=== PATIENT | male | born 1950 | race Caucasian/White ===

== ENCOUNTER 2016-10-11 15:15 | Emergency (ER) | payer SELFPAY ==
[2016-10-11 15:24] VITALS: BP 123/77
--- NOTE | 2016-10-11 15:56 | UC ---
Head Injury HPI - HPI Summary HPI Summary: fell and hit left side of forehead on cement-laceration above left eye brow, no loc - History Of Current Complaint Chief Complaint: UCLaceration Stated Complaint: FOREHEAD LAC Time Seen by Provider: 10/11/16 15:36 Hx Obtained From: Patient Mechanism Of Injury: fall Onset/Duration: Sudden Onset, Lasting Hours - 1, Still Present Severity Currently: Moderate Severity Initially: Moderate Pain Intensity: 4 Pain Scale Used: 0-10 Numeric Character: Other Aggravating Factor(s): Nothing Alleviating Factor(s): Nothing Associated Signs And Symptoms: Positive: Negative Anticoagulant Therapy: Platelet Inhibitors - Allergies/Home Medications Allergies/Adverse Reactions: Allergies Allergy/AdvReac Type Severity Reaction Status Date / Time No Known Allergies Allergy Verified 10/11/16 15:41 Home Medications: Home Medications Atorvastatin* [Lipitor 40 MG*] 40 mg PO DAILY 10/11/16 [History Confirmed ] Bisoprolol TAB* [Zebeta TAB*] 1 tab PO DAILY 10/11/16 [History Confirmed ] Clonazepam 0.5 mg PO DAILY 10/11/16 [History Confirmed 10/11/16] Clopidogrel TAB* [Plavix TAB*] 75 mg PO DAILY 10/11/16 [History Confirmed ] Hydroxychloroquine TAB* [Plaquenil TAB*] 2 tab PO DAILY 10/11/16 [History Confirmed 10/11/16] Lisinopril TAB* [Prinivil TAB 5 MG*] 5 mg PO DAILY 10/11/16 [History Confirmed 10/11/16] Nitroglycerin TAB 0.4 MG* 0.4 mg SL SEE INSTRUCTIONS PRN 10/11/16 [History Confirmed 10/11/16] Pantoprazole Sodium [Protonix] 40 mg PO DAILY 10/11/16 [History Confirmed ] Potassium Chloride Microencaps [Klor-Con M10] 20 mg PO BID 10/11/16 [History Confirmed 10/11/16] amLODIPine TAB* [Norvasc 5 mg TAB*] 5 mg PO DAILY 10/11/16 [History Confirmed ] PMH/Surg Hx/FS Hx/Imm Hx Previously Healthy: No Endocrine History: Dyslipidemia Cardiovascular History: Cardiac Disease, Hypertension, Myocardial Infarction - Surgical History Surgical History: Yes Surgery Procedure, Year, and Place: Stomach Surgery - Family History Known Family History: Positive: None Family History: Denies cardio vascular issues in family lineage - Social History Occupation: Employed Full-time - electric lift truck driver Lives: With Family Alcohol Use: None Substance Use Type: None Smoking Status (MU): Never Smoked Tobacco Review of Systems Constitutional: Negative Skin: Other - 1 inch laceration above left eye brow Eyes: Negative ENT: Negative Respiratory: Negative Cardiovascular: Negative Gastrointestinal: Negative Genitourinary: Negative Motor: Negative Neurovascular: Negative Musculoskeletal: Negative Neurological: Negative Psychological: Negative All Other Systems Reviewed And Are Negative: Yes Physical Exam Triage Information Reviewed: Yes Appearance: Well-Appearing, No Pain Distress, Well-Nourished Vital Signs: Initial Vital Signs Temp 98.0 F 10/11/16 15:22 Pulse 64 10/11/16 15:22 Resp 14 10/11/16 15:22 BP 123/77 10/11/16 15:22 Pulse Ox 100 10/11/16 15:22 Vital Signs Reviewed: Yes Eye Exam: Normal Eyes: Positive: Conjunctiva Clear ENT Exam: Normal ENT: Positive: Normal ENT inspection, Hearing grossly normal, Pharynx normal, TMs normal. Negative: Nasal congestion, Nasal drainage, Tonsillar swelling, Tonsillar exudate, Trismus, Muffled/hoarse voice Dental Exam: Normal Neck exam: Normal Neck: Positive: Supple, Nontender, No Lymphadenopathy Respiratory Exam: Normal Respiratory: Positive: Chest non-tender, Lungs clear, Normal breath sounds, No respiratory distress, No accessory muscle use Cardiovascular Exam: Normal Cardiovascular: Positive: RRR, No Murmur, Pulses Normal, Brisk Capillary Refill Musculoskeletal Exam: Normal Musculoskeletal: Positive: Strength Intact, ROM Intact, No Edema Neurological Exam: Normal Neurological: Positive: Alert, Muscle Tone Normal Psychological Exam: Normal Skin Exam: Other Skin: Positive: Other - laceration above left eye brow Head Injury Course/Dx - Course Course Of Treatment: transfer to [facility] [place] (CT scan not avalable) - Differential Dx/Diagnosis Differential Diagnosis/HQI/PQRI: Concussion With LOC, Contusion, Hematoma, Intracranial Bleed, Laceration Provider Diagnoses: Head injury on Plavix - Physician Notification/Consults Discussed Patient Care With: CN AT ED Time Discussed With Above Provider: 16:00 Instructed by Provider To: Transfer Discharge - Discharge Plan Condition: Stable Disposition: AGAINST MEDICAL ADVICE Referrals: Jean Claude SHAW,Raleigh Ayala [Primary Care Provider] -
== END 2016-10-11 16:05 | disposition left against medical advice (07) ==
LOC: UCEAST 15:15
DX: S01.81XA Laceration without foreign body of other part of head, initial encounter (principal); W19.XXXA Unspecified fall, initial encounter; Y93.9 Activity, unspecified; Y92.9 Unspecified place or not applicable; Y99.9 Unspecified external cause status; Z53.21 Procedure and treatment not carried out due to patient leaving prior to being seen by health care provider; E78.5 Hyperlipidemia, unspecified; I25.10 Atherosclerotic heart disease of native coronary artery without angina pectoris; I10 Essential (primary) hypertension; I25.2 Old myocardial infarction
CPT/HCPCS: 99202; G0463

== ENCOUNTER 2016-10-11 16:30 | Emergency (ER) | payer MEDICARE, OTHER ==
[2016-10-11 16:42] VITALS: BP 179/91
--- NOTE | 2016-10-11 16:44 | ED ---
Head Injury - HPI Summary HPI Summary: 66M presents with head injury today. He was seen at urgent care and was transferred for CT due to being on plavix. Fall was a mechanical fall. He denies any LOC, n/v or headache. He denies any pain or any other injury. He denies any blurry vision or change in vision. He states he only hit above his left eye. He has a laceration there. He is on the plavix due to a stent. He denies any chest pain or SOB. His last tetanus was recently he believes. - History Of Current Complaint Chief Complaint: EDHeadInjury Stated Complaint: HEAD INJURY/SENT FROM [facility] Time Seen by Provider: 10/11/16 16:38 Pain Intensity: 0 - Allergies/Home Medications Allergies/Adverse Reactions: Allergies Allergy/AdvReac Type Severity Reaction Status Date / Time No Known Allergies Allergy Verified 10/11/16 15:41 PMH/Surg Hx/FS Hx/Imm Hx Endocrine/Hematology History: Reports: Hx Anticoagulant Therapy Cardiovascular History: Reports: Hx Hypertension - Surgical History Surgery Procedure, Year, and Place: Stomach Surgery Infectious Disease History: No Infectious Disease History: Denies: Traveled Outside the [place] in Last 30 Days - Family History Known Family History: Positive: Cardiac Disease - Social History Alcohol Use: None Substance Use Type: Reports: None Smoking Status (MU): Never Smoked Tobacco Review of Systems Negative: Fever Negative: Chest Pain Negative: Shortness Of Breath Neurological: Other - head injury All Other Systems Reviewed And Are Negative: Yes Physical Exam Triage Information Reviewed: Yes Vital Signs On Initial Exam: Initial Vitals Temp Pulse Resp BP Pulse Ox 98.0 F 66 20 146/103 100 10/11/16 16:33 10/11/16 16:33 10/11/16 16:33 10/11/16 16:33 10/11/16 16:33 Vital Signs Reviewed: Yes Appearance: Positive: Well-Appearing Skin: Positive: Warm, Dry, Other - 1 cm laceration to left temporal region present on contusion Head/Face: Positive: Other - contusion above left eye, no racoon eyes, up sign Eyes: Positive: Normal, EOMI, RADHA, Conjunctiva Clear ENT: Positive: Normal ENT inspection, Pharynx normal, TMs normal Respiratory/Lung Sounds: Positive: Clear to Auscultation, Breath Sounds Present Cardiovascular: Positive: Normal, RRR Neurological: Positive: Sensory/Motor Intact, Alert, Oriented to Person Place, Time, CN Intact II-III - [place] Coma Scale Best Eye Response: 4 - Spontaneous Best Motor Response: 6 - Obeys Commands Best Verbal Response: 5 - Oriented Procedures - Laceration/Wound Repair 1 Location: head Description: Linear Length, Depth and Shape: 1cm Irrigated w/ Saline (ccs): 50 Closure: Skin Adhesive, SteriStrips Diagnostics - Vital Signs Vital Signs Temp Pulse Resp BP Pulse Ox 10/11/16 16:38 98 F 66 20 179/91 100 10/11/16 16:33 98.0 F 66 20 146/103 100 - Laboratory Lab Statement: Any lab studies that have been ordered have been reviewed, and results considered in the medical decision making process. - CT brain CT Interpretation: No Acute Changes - IMPRESSION: NO ACUTE INTRACRANIAL PATHOLOGY. CHRONIC SMALL VESSEL ISCHEMIC CHANGES. CT Interpretation Completed By: Radiologist maxillary facial CT Interpretation: No Acute Changes - IMPRESSION: SOFT TISSUE SWELLING. NO FACIAL FRACTURE. CT Interpretation Completed By: Radiologist Head Injury Course/Dx Course Of Treatment: 66M presents with head injury today s/p mechanical fall. denies any LOC, n/v. denies any pain. has contusion to left temporal region with 1 cm laceration present there. normal neuro exam. CT brain: normal. placed glue and steri strips on laceration as was minimal bleeding. told to follow up with primary to see when last tetanus was as believed it was recently. told to place ice on area and follow up with primary. patient understands and agrees with plan - Diagnoses Differential Diagnosis/HQI/PQRI: Contusion, Hematoma, Intracranial Bleed, Laceration Provider Diagnoses: Head injury, Laceration of face Discharge - Discharge Plan Condition: Good Disposition: HOME Patient Education Materials: Skin Adhesive Care (ED), Head Injury (ED) Referrals: LESLIE Dinero [Primary Care Provider] - Additional Instructions: Place ice on area as needed Take Tylenol for headache every 6 hours Avoid scrubbing glue area Glue and steri strips will fall off on own Follow up with primary within 5 days Return to ED if develop vomiting, severe headache, change in behavior, or any new or worsening symptoms
--- NOTE | 2016-10-11 17:25 | RAD ---
HISTORY: Fall, Plavix COMPARISONS: None TECHNIQUE: Multiple contiguous axial CT scans were obtained of the head without intravenous contrast. FINDINGS: HEMORRHAGE/INFARCT: There is no hemorrhage or acute infarct. MASSES/SHIFT: There is no mass or shift. EXTRA-AXIAL SPACES: There are no extra-axial fluid collections. SULCI AND VENTRICLES: The sulci and ventricles are normal in size and position for the patient's stated age. CEREBRUM: There is hypoattenuation of the periventricular and subcortical white matter. BRAINSTEM: There are no focal parenchymal abnormalities. CEREBELLUM: There are no focal parenchymal abnormalities. VESSELS: There is calcification of the cavernous segments of the internal carotid arteries bilaterally. PARANASAL SINUSES: The paranasal sinuses are clear. ORBITS: The orbits are unremarkable. BONES AND SOFT TISSUE: There is soft tissue swelling along the left frontotemporal scalp OTHER: None IMPRESSION: NO ACUTE INTRACRANIAL PATHOLOGY. CHRONIC SMALL VESSEL ISCHEMIC CHANGES.
--- NOTE | 2016-10-11 17:28 | RAD ---
HISTORY: Trauma, facial trauma, on Plavix COMPARISONS: None TECHNIQUE: Multiple contiguous axial CT scans were obtained of the face without intravenous contrast, with coronal and sagittal multiplanar reformations. FINDINGS: BONES: There is no displaced fracture or dislocation. The orbital rim is intact. The zygomatic arch is intact. The pterygoid plates are intact. ORBITS: The globes are round. The optic nerves are symmetric. The extraocular musculature is normal. There is no post septal or intraconal inflammatory change. There is no retrobulbar hematoma. PARANASAL SINUSES: The paranasal sinuses are clear. The nasal anatomy is deviated to the left with right-sided spurring BRAIN AND SOFT TISSUE: There is soft tissue swelling along the left frontotemporal skull. OTHER: None. IMPRESSION: SOFT TISSUE SWELLING. NO FACIAL FRACTURE.
== END 2016-10-11 17:38 | disposition home or self-care (01) ==
LOC: ED 16:30
DX: S01.81XA Laceration without foreign body of other part of head, initial encounter (principal); S09.90XA Unspecified injury of head, initial encounter; W19.XXXA Unspecified fall, initial encounter; Y93.9 Activity, unspecified; Y92.9 Unspecified place or not applicable
CPT/HCPCS: 70450; 70486; 99281